=== PATIENT | male | born 1955 | race Caucasian/White ===

== ENCOUNTER 2018-02-03 12:38 | Observation (INO) ==
--- NOTE | 2018-02-03 12:56 | Emergency Department Note ---
Disposition Clinical Impression: Syncope, Bradycardia Disposition: Admitted As Inpatient Condition: Good Referrals: NONE,PCP [Primary Care Provider] - Forms: ED Satisfaction Letter Time of Disposition: 15:27 Syncope HPI - General Chief Complaint: ED Syncope Stated Complaint: near syncope Time Seen by Provider: 02/03/18 12:45 Source: patient, EMS Limitations: no limitations Nursing Notes Reviewed: Yes Vital Signs Reviewed: Yes - History of Present Illness HPI Narrative: Patient went from being in the pool for 30 minutes to the hot tub sun and became lightheaded dizzy felt he was given a passout patient states this happened to him in the past. He denies fever chills lightheadedness dizziness at this present time states all symptoms have resolved. He denies chest pain chest pressure palpitations cough cold of flulike symptoms. Denies any diarrhea melena hematochezia hematemesis numbness tingling weakness recent weight gain or weight loss. 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 LOC) Prodromal Symptoms: headache Context: during exertion Injuries Sustained Associated with Event: face, chest Current Symptoms: back to baseline, chest pain History: other - Related Data Home Medications Medication Instructions Recorded Confirmed Fludrocortisone Acetate [Florinef] 0.1 mg PO DAILY PRN 06/04/16 02/03/18 Gabapentin [Neurontin] 100 mg PO TID 12/05/17 02/03/18 Omeprazole Magnesium [Prilosec Otc] 20 mg PO DAILY 12/05/17 02/03/18 Sodium Chloride [Sodium Chloride 1 gm PO DAILY 12/05/17 02/03/18 Tab] Allergies Allergy/AdvReac Type Severity Reaction Status Date / Time No Known Allergies Allergy Verified 12/05/17 10:19 All systems ED: reviewed and negative except as stated. Review of Systems: As Per HPI Constitutional: Reports: weakness. Denies: fever, chills Eyes: Denies: eye pain, eye discharge ENT ED: Denies: ear pain, throat pain Cardiovascular: Denies: chest pain, palpitations Respiratory: Denies: cough, dyspnea, wheezes Gastrointestinal: Denies: abdominal pain, nausea, vomiting Genitourinary: Denies: urgency, dysuria Musculoskeletal: Denies: back pain Integumentary: Denies: rash, abrasion Neurological: Denies: headache Psychiatric: Denies: anxiety Endocrine: Reports: fatigue Hematological/Lymphatic: Denies: easy bleeding Allergic/Immunologic: Denies: facial swelling Past Medical History - Past Medical History Attestation: Yes The following information was validated with the patient. Source: patient, old records reviewed, obtained from family, nursing notes reviewed Medical history: Reports: CVA, GERD, other Surgical history: Reports: appendectomy, other Psychiatric history: Reports: no psych history - Social History Smoking Status: Never smoker Smokeless Tobacco Status: No Alcohol use: Reports: none Drug use: Reports: none Physical Exam - General Limitations: no limitations, age General appearance: alert, in no apparent distress - Head Head exam: normocephalic, normal inspection, other - Eye Eye exam: Present: normal appearance, PERRL, EOMI - ENT ENT exam: normal exam, normal oropharynx, mucous membranes moist, TM's normal bilaterally, normal external ear exam - Neck Neck exam: Present: normal inspection, full ROM, trachea midline - Chest Chest inspection: Present: normal inspection, symmetric chest wall rise - Respiratory Respiratory exam: Present: normal lung sounds bilaterally - Cardiovascular Cardiovascular exam: Present: regular rate, normal rhythm, normal heart sounds - Abdominal Exam Abdominal exam: Present: soft, Non-Tender, normal bowel sounds. Absent: mass, pulsatile mass - Expanded Upper Extremity Exam Shoulder exam: Present: normal inspection, full ROM Arm exam: Present: normal inspection, full ROM Elbow exam: Present: normal inspection, full ROM Forearm/Wrist exam: Present: normal inspection, full ROM Hand exam: Present: normal inspection, full ROM Vascular exam: Normal: capillary refill, radial pulse - Expanded Lower Extremity Exam Hip/Pelvis exam: Present: normal inspection, full ROM Upper leg exam: Present: normal inspection, full ROM Knee exam: Present: normal inspection, full ROM Lower leg exam: Present: normal inspection, full ROM Ankle exam: Present: normal inspection, full ROM Foot/toe exam: Present: normal inspection, full ROM Neurovascular/Tendon exam: Present: normal capillary refill, normal fine/light touch. Absent: motor deficit, sensory deficit, tendon deficit Gait: observed and normal - Back Exam Back exam: Present: normal inspection, full ROM, muscle spasm - Neurological Exam Neurological exam: Present: alert, oriented X3, CN II-XII intact, normal gait - Psychiatric Psychiatric exam: Present: normal affect, normal mood - Skin Skin exam: Present: warm, dry, intact, normal color Course Course Narrative: Patient seen and examined patient had a CT the chest CT of the head to rule out possible fractures or pneumothorax patient is resting comfortably at this time Vital Signs Temperature 97.1 F L 02/03/18 12:41 Pulse Rate 74 02/03/18 12:41 Respiratory Rate 18 02/03/18 12:41 Blood Pressure 112/69 02/03/18 12:41 O2 Sat by Pulse Oximetry 98 02/03/18 12:41 Temperature 97.1 F L 02/03/18 12:41 Pulse Rate 74 02/03/18 15:00 Respiratory Rate 18 02/03/18 15:00 Blood Pressure 147/79 02/03/18 15:00 O2 Sat by Pulse Oximetry 100 02/03/18 15:00 Oxygen Delivery Oxygen Delivery Room Air Syncope - Medical Records Medical records reviewed: Yes I reviewed the patient's medical records. - Lab Data Lab results reviewed: Yes I reviewed the patient's lab results. Result diagrams: 02/03/18 13:05 02/03/18 13:05 Lab Results 02/03/18 02/03/18 02/03/18 Range/Units 13:05 13:05 13:05 WBC 7.0 (4.3-11.1) K/mcL RBC 4.62 (4.19-5.50) M/mcL Hgb 13.7 (12.9-16.9) g/dL Hct 39.9 (37.5-50.1) % MCV 86.4 (83.0-100.0) fL MCH 29.7 (28.0-33.3) pg MCHC 34.3 (31.6-35.5) g/dL RDW 12.9 (11.5-14.5) % Plt Count 99 L (140-400) K/mcL MPV 11.1 (9.4-12.4) fL Seg Neutrophils % 42.0 % Lymphocytes % 28.0 % Monocytes % 18.0 % Eosinophils % 6.0 % Basophils % 6.0 % Neutrophils # 2.9 (1.6-8.9) K/mcL Lymphocytes # 2.0 (0.6-4.6) K/mcL Monocytes # 1.3 (0.0-1.3) K/mcL Eosinophils # 0.4 (0.0-0.6) K/mcL Basophils # 0.4 H (0.0-0.2) K/mcL Platelet Estimate Normal (Normal) Large Platelets Present A (Not Present) Anisocytosis 1+ A (Not Present) PT 12.3 H (9.4-12.1) Seconds INR 1.1 APTT 31.7 (26.0-36.0) Seconds Sodium 141 (136-145) mEq/L Potassium 3.4 L (3.5-5.1) mEq/L Chloride 107 (98-107) mEq/L Carbon Dioxide 27 (23-29) mEq/L BUN 11 (8-23) mg/dL Creatinine 0.98 (0.70-1.30) mg/dL Est GFR ( Amer) > 60 (> 60) Est GFR (Non-Af Amer) > 60 (> 60) BUN/Creatinine Ratio 11 (6-26) Glucose 88 (70-105) mg/dL Calculated Osmolality 291 (280-300) Calcium 8.8 (8.6-10.3) mg/dL Troponin I < 0.03 (< 0.04) ng/mL TSH 1.179 (0.340-5.600) mcIU/mL - Radiology Data Radiology results reviewed: Yes I reviewed the patient's radiology results. ITS Impressions Chest X-Ray 02/03/18 12:54 IMPRESSION: No acute process. D/ / Cyrus Cole MD / Cyrus Cole MD Interpreting Provider: Cyrus Cole MD Head CT 02/03/18 12:54 IMPRESSION: No acute intracranial abnormality. D/ / Cyrus Cole MD / Cyrus Cole MD Interpreting Provider: Cyrus Cole MD - EKG Data EKG attestation: Yes I reviewed and interpreted this EKG. EKG results narrative: Sinus rhythm nonspecific T-wave rate 71 MS 172 QRS 85 QT 380 and axis XXXVI Critical Care Time Critical Care Time: No
[2018-02-03 13:32] LABS: INR 1.1; Prothrombin Time 12.3 Seconds (9.4-12.1)
[2018-02-03 13:35] LABS: Activated Partial Thrombo Time 31.7 Seconds (26.0-36.0); Hematocrit 39.9 % (37.5-50.1); Hemoglobin 13.7 g/dL (12.9-16.9); Mean Corpuscular HGB Conc 34.3 g/dL (31.6-35.5); Mean Corpuscular Hemoglobin 29.7 pg (28.0-33.3); Mean Corpuscular Volume 86.4 fL (83.0-100.0); Mean Platelet Volume 11.1 fL (9.4-12.4); Platelet Count 99 K/mcL (140-400); Red Blood Count 4.62 M/mcL (4.19-5.50); Red Cell Distribution Width 12.9 % (11.5-14.5)
[2018-02-03 13:43] LABS: BUN/Creatinine Ratio 11 (6-26); Blood Urea Nitrogen 11 mg/dL (8-23); Calcium 8.8 mg/dL (8.6-10.3); Carbon Dioxide 27 mEq/L (23-29); Chloride 107 mEq/L (98-107); Glucose 88 mg/dL (70-105); Osmolality,Calculated 291 (280-300); Potassium 3.4 mEq/L (3.5-5.1); Sodium 141 mEq/L (136-145); eGFR For Non-African Americans > 60 (> 60)
[2018-02-03 13:44] LABS: Troponin I < 0.03 ng/mL (< 0.04)
--- NOTE | 2018-02-03 13:48 | Electrocardiograph Report ---
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
[2018-02-03 13:57] LABS: Thyroid Stimulating Hormone 1.179 mcIU/mL (0.340-5.600)
[2018-02-03 14:13] LABS: Anisocytosis 1+ (Not Present); Basophils # 0.4 K/mcL (0.0-0.2); Eosinophils # 0.4 K/mcL (0.0-0.6); Large Platelets Present (Not Present); Monocytes # 1.3 K/mcL (0.0-1.3); Neutrophils # 2.9 K/mcL (1.6-8.9); Platelet Estimate Normal (Normal)
[2018-02-03] MEDS ORDERED: Naloxone 0.4 MG/ML INJ IVP PRN ×2 (16:17)
--- NOTE | 2018-02-03 17:44 | Internal Med History&Physical ---
Date of Encounter: 02/03/18 Time of Encounter: 17:00 Assessment and Plan (1) Near syncope Current visit: Yes Status: Acute Possibly due to hypotension from vasodilation. Orthostatic vital signs will be checked in a.m. Telemetry monitoring will be done. Review of rhythm strips from the emergency room does not show heart rate decreasing into the 30s. There appears to be incorrect analysis of data by machine. (2) Hypokalemia Current visit: Yes Status: Acute Intermittently present since October 2015. Suspect due in part to Florinef use. Supplemental potassium will be given and labs rechecked in a.m. (3) Thrombocytopenia Current visit: Yes Status: Acute Platelet count was 329K on 01/24/2018. No previous thrombocytopenia documented on labs back to November 2013. Recheck in a.m. (4) Orthostatic hypotension Current visit: Yes Status: Acute Continue Florinef and sodium chloride tablets. Check orthostatic vital signs in a.m. Internal Medicine - H&P: HPI Chief complaint: Near syncope Admitted From: Emergency Dept Plans for Post Hospital Care: Home History of present illness: Mr. Fernandez is a 62 year old male who came to emergency room after having a near syncopal episode. He reports he was swimming in the pool at [facility] and got out of the pool to sit in the hot tub. He became lightheaded and dizzy but denies complete syncope. He was brought to emergency room and evaluated. Blood pressure was satisfactory but heart rate was reported to drop to the 30s in emergency room. He was admitted to [facility] for observation and ongoing care needs. He states he feels back to his baseline now. He states he had a similar but much less severe episode of lightheadedness on January 31 when he got in the hot tub following swimming. He reports a true syncopal episode 08/27/2015 at home with a fall resulting in neck fracture. He had cervical fusion surgery at a [facility]. He reports the next syncopal episode was July 2016 with a fall resulting in right clavicle fracture. Patient states a Holter monitor at that time showed a 2 second pause. His financial professional then ordered an event monitor which did not show significant findings and no pacemaker was placed. He reports another syncopal episode in the fall of 2016 without further workup done. His cardiovascular history is significant otherwise for orthostatic hypotension diagnosed July 2016 with tilt table test producing syncope. He was placed on Florinef and sodium chloride tablets for treatment. He denies diagnosis of heart failure [place] DVT or pulmonary embolus. Past Med Surg Social Fam HX - Past Medical History Medical history: CVA, GERD, other Additional medical history: neck fracture Psychiatric history: no psych history - Past Surgical History Surgical History: appendectomy, other Additional surgical history: BOWEL OBSTRUCTION, SURGICAL REPAIR, neck sx - Social History Smoking Status: Never smoker Smokeless Tobacco Status: No Alcohol use: none Drug use: none Internal Medicine - H&P: Meds Fludrocortisone Acetate [Florinef] 0.1 mg PO DAILY PRN 06/04/16 [History] Gabapentin [Neurontin] 100 mg PO TID 12/05/17 [History] Omeprazole Magnesium [Prilosec Otc] 20 mg PO DAILY 12/05/17 [History] Sodium Chloride [Sodium Chloride Tab] 1 gm PO DAILY 12/05/17 [History] Allergy/AdvReac Type Severity Reaction Status Date / Time No Known Allergies Allergy Verified 12/05/17 10:19 All Systems PM: A 10-system review of systems was performed and is negative for pertinent findings except as documented above in the HPI. Review of systems: Gen.: He states his weight has fluctuated significantly in the past 2 years but has been stable for the last 2 months. Cardiovascular: As per history of present illness Respiratory: He is a lifelong nonsmoker and denies chronic lung disease GI: He has had appendectomy and reports surgery for intestinal obstruction many years ago. There is been no recurrence of the obstruction and he does not know the etiology. He has occasional GERD symptoms. He denies disorders of his liver gallbladder or exocrine pancreas. : He denies hematuria dysuria or kidney stones Neurologic: He reports seizures in childhood with his last seizure in the 1970s. He states the neurosurgeon told him after the July 2015 fall and neck fracture that a stroke might have occurred although no imaging evidence was found. Patient reports very minimal residual weakness in his left arm and leg. Endocrine: He denies diabetes thyroid disease or hyperlipidemia Hematology/oncology: He denies blood disorders cancers or anemia Psychiatric: He denies anxiety depression or other mental health issues [place] skeletal: He states he has a nerve compression around his right lateral knee area. He denies other bone joint or muscle disorders. He has had cervical spine surgery as per history of present illness. - Constitutional Vitals: Temp Pulse Resp BP Pulse Ox 97.1 F L 74 18 147/79 100 02/03/18 12:41 02/03/18 15:00 02/03/18 15:00 02/03/18 15:00 02/03/18 15:00 Exam: Gen.: He is a well-developed well-nourished male resting comfortably in bed who appears in no acute distress at present time HEENT: Head is atraumatic and normocephalic. Eyes: EOMI. There is no scleral icterus. Mouth: Mucosa is moist. Neck: Supple and nontender. There is no thyromegaly or adenopathy noted. Heart: Regular without murmurs gallops or ectopics Lungs: No wheezes or crackles are heard. Abdomen: Soft and nontender. No masses or guarding are noted. Extremities: There is no cyanosis edema or clubbing noted. Dorsalis pedis and posttibial pulses are 1-2 over 2 bilaterally. Neurologic: Mental status: He is talkative and a good historian. Cranial nerves: Smile is symmetric. Forehead wrinkles bilaterally. Tongue protrudes midline. EOMI. Motor: There is no pronator drift. Cerebellar: Finger to nose is intact bilaterally. Skin: Warm and dry. He has well-healed posterior cervical surgical scar. Internal Med - H&P Results - Labs CBC & Chem 7: 02/03/18 13:05 02/03/18 13:05 Labs: Short CBC 02/03/18 Range/Units 13:05 WBC 7.0 (4.3-11.1) K/mcL Hgb 13.7 (12.9-16.9) g/dL Hct 39.9 (37.5-50.1) % Plt Count 99 L (140-400) K/mcL Neutrophils # 2.9 (1.6-8.9) K/mcL BMP 02/03/18 13:05 Sodium 141 Potassium 3.4 L Chloride 107 Carbon Dioxide 27 BUN 11 Creatinine 0.98 Glucose 88 Calcium 8.8 Cardiac Enzymes 02/03/18 Range/Units 13:05 Troponin I < 0.03 (< 0.04) ng/mL - Impressions ITS Impressions Chest X-Ray 02/03/18 12:54 IMPRESSION: No acute process. D/ / Cyrus Cole MD / Cyrus Cole MD Interpreting Provider: Cyrus Cole MD Head CT 02/03/18 12:54 IMPRESSION: No acute intracranial abnormality. D/ / Cyrus Cole MD / Cyrus Cole MD Interpreting Provider: Cyrus Cole MD
[2018-02-03] MEDS: Gabapentin 100 MG CAPSULE PO SCH ×2 (18:13→23:10)
[2018-02-03 21:17] LABS: Bilirubin,Urine Negative (Negative); Blood,Urine Negative (Negative); Clarity,Urine Cloudy (Clear); Color,Urine Yellow (Yellow); Glucose,Urine (UA) Normal (Normal); Ketones,Urine Negative (Negative); Leukocyte Esterase,Urine Negative (Negative); Nitrite,Urine Negative (Negative); PH,Urine 7.5 pH Units (5.0-8.0); Protein,Urine Negative (Neg-Trace)
[2018-02-03 21:22] LABS: Amorphous Sediment,Urine Many (Few); Hyaline Casts,Urine Few per lpf (None-Few); Mucus,Urine Few (Few); Squamous Epithelial Cell,Urine Few per lpf (None-Few)
[2018-02-03 21:23] LABS: Bacteria,Urine Many per hpf (None-Few); RBC,Urine 0-3 per hpf (0-3); WBC,Urine 0-3 per hpf (0-3)
[2018-02-04 07:46] LABS: Basophils # 0.1 K/mcL (0.0-0.2); Basophils % 0.6 %; Eosinophils # 0.1 K/mcL (0.0-0.6); Eosinophils % 0.9 %; Hematocrit 41.3 % (37.5-50.1); Hemoglobin 14.3 g/dL (12.9-16.9); Immature Granulocytes % 0.3 % (0-4); Lymphocytes # 1.7 K/mcL (0.6-4.6); Lymphocytes % 20.8 %; Mean Corpuscular HGB Conc 34.6 g/dL (31.6-35.5); Mean Corpuscular Hemoglobin 29.9 pg (28.0-33.3); Mean Corpuscular Volume 86.2 fL (83.0-100.0); Mean Platelet Volume 10.7 fL (9.4-12.4); Monocytes # 1.2 K/mcL (0.0-1.3); Monocytes % 15.2 %; Neutrophils # 4.9 K/mcL (1.6-8.9); Platelet Count 108 K/mcL (140-400); Red Blood Count 4.79 M/mcL (4.19-5.50); Red Cell Distribution Width 12.9 % (11.5-14.5); Segmented Neutrophils % 62.2 %
[2018-02-04 08:01] LABS: BUN/Creatinine Ratio 12 (6-26); Blood Urea Nitrogen 10 mg/dL (8-23); Calcium 9.6 mg/dL (8.6-10.3); Carbon Dioxide 26 mEq/L (23-29); Chloride 107 mEq/L (98-107); Glucose 103 mg/dL (70-105); Osmolality,Calculated 287 (280-300); Potassium 3.8 mEq/L (3.5-5.1); Sodium 139 mEq/L (136-145); eGFR For Non-African Americans > 60 (> 60)
[2018-02-04] MEDS: Gabapentin 100 MG CAPSULE PO SCH (08:44)
--- NOTE | 2018-02-04 11:09 | Discharge Summary ---
Date of Encounter: 02/04/18 Time of Encounter: 11:00 - Discharge Diagnosis (1) Near syncope Priority: Primary Status: Acute (2) Hypokalemia Priority: Secondary Status: Resolved (3) Thrombocytopenia Priority: Secondary Status: Acute (4) Orthostatic hypotension Priority: Secondary Status: Chronic Hospital course: Mr. Fernandez is a 62 year old male who came to emergency room after having a near syncopal episode. He reports he was swimming in the pool at [facility] and got out of the pool to sit in the hot tub. He became lightheaded and dizzy but denies complete syncope. He was brought to emergency room and evaluated. Blood pressure was satisfactory but heart rate was reported to drop to the 30s in emergency room. He was admitted to [facility] for observation and ongoing care needs. Initial orders were written by the emergency room physician. I saw him on February 03 and performed the history and physical. I reviewed the ER telemetry strips from emergency room. The quality of the paper printout of the ER telemetry was fair. It did not appear to me his heart rate dropped below 60. He had no further near syncopal or syncopal episodes after admission. He was able to ambulate to the bathroom without symptoms. Orthostatic vital signs done the morning of discharge showed no significant change in blood pressure from lying to standing. Supplemental potassium was ordered and potassium level normalized by the following day at 3.8. He will remain on potassium supplement at discharge. Platelet count damien to 108K on February 04. His PCP can continue to monitor. The etiology of the thrombocytopenia is not obvious. On February 04 he felt improved and stable for discharge home. He will follow with his PCP Dr. Malik Lynch within 1 week. He will also follow with his real estate office manager Dr. Ernie Gentile. - Time Spent with Patient Total time spent providing and/or coordinating discharge services: - Discharge Medications Prescriptions: Potassium Chloride 20 meq PO DAILY #30 [email or web address] Home Medications: Fludrocortisone Acetate [Florinef] 0.1 mg PO DAILY PRN 06/04/16 [History] Gabapentin [Neurontin] 100 mg PO TID 12/05/17 [History] Omeprazole Magnesium [Prilosec Otc] 20 mg PO DAILY 12/05/17 [History] Sodium Chloride [Sodium Chloride Tab] 1 gm PO DAILY 12/05/17 [History] Potassium Chloride 20 meq PO DAILY #30 [email or web address] 02/04/18 [Rx] Allergies/Adverse Reactions: Allergy/AdvReac Type Severity Reaction Status Date / Time No Known Allergies Allergy Verified 12/05/17 10:19 Date of admission: 02/03/18 15:25 Primary care physician: Malik Lynch M.D. - Constitutional Vitals: Temp Pulse Resp BP Pulse Ox 98.4 F 73 19 173/95 95 02/04/18 06:00 02/04/18 06:00 02/04/18 06:00 02/04/18 06:00 02/04/18 06:00 - Patient Status Disposition: Home, Self-Care Condition: Good - Discharge Instructions Follow Up With: NONE,PCP [Primary Care Provider] - 1 week - Diet and Activity Activity: resume usual activities as tolerated Diet: advance to your usual diet
[2018-02-04 11:31] VITALS: BP 162/97
== END 2018-02-04 12:33 | disposition home or self-care (01) ==
LOC: EMEROOPIK 12:38 → INPPIK 12:38
PROVIDERS: ADMIT Internal Medicine; ATTEND Internal Medicine

== ENCOUNTER 2019-07-16 21:56 | Inpatient (IN) ==
[2019-07-16] MEDS ORDERED: 0.9 % Sodium Chloride 1,000 ML IVC ONE (22:02)
[2019-07-16 22:29] LABS: Basophils % 0.2 %; Eosinophils % 0.1 %; Hematocrit 43.7 % (37.5-50.1); Hemoglobin 14.9 g/dL (12.9-16.9); Immature Granulocytes % 0.2 % (0-4); Lymphocytes # 1.1 K/mcL (0.6-4.6); Lymphocytes % 8.7 %; Mean Corpuscular HGB Conc 34.1 g/dL (31.6-35.5); Mean Corpuscular Hemoglobin 29.3 pg (28.0-33.3); Monocytes % 7.4 %; Neutrophils # 10.9 K/mcL (1.6-8.9); Platelet Count 317 K/mcL (140-400); Red Blood Count 5.08 M/mcL (4.19-5.50); Red Cell Distribution Width 13.3 % (11.5-14.5); Segmented Neutrophils % 83.4 %; White Blood Count 13.1 K/mcL (4.3-11.1)
[2019-07-16 22:48] LABS: Troponin I < 0.03 ng/mL (< 0.04)
[2019-07-16 22:49] LABS: Alanine Aminotransferase 14 Units/L (7-52); Albumin 4.1 g/dL (3.5-5.7); Albumin/Globulin Ratio 1.3 (1.1-2.2); Alkaline Phosphatase 84 Units/L (34-104); Amylase 29 Units/L (29-103); Aspartate Amino Transferase 17 Units/L (13-39); BUN/Creatinine Ratio 14 (6-26); Bilirubin,Total 1.3 mg/dL (0.3-1.0); Blood Urea Nitrogen 18 mg/dL (8-23); Calcium 9.8 mg/dL (8.6-10.3); Carbon Dioxide 22 mEq/L (23-29); Chloride 100 mEq/L (98-107); Globulin 3.1 g/dL (2.4-3.5); Glucose 142 mg/dL (70-105); Lipase 22 Units/L (11-82); Osmolality,Calculated 286 (280-300); Potassium 3.4 mEq/L (3.5-5.1); Sodium 136 mEq/L (136-145); Total Protein 7.2 g/dL (6.4-8.9); eGFR For African Americans > 60 (> 60); eGFR For Non-African Americans 57 (> 60)
[2019-07-16] MEDS ORDERED: 0.9 % Sodium Chloride 1,000 ML IVC SCH (23:00)
[2019-07-16] MEDS ORDERED: MetroNIDAZOLE 500 MG/100 ML 500 MG/100 ML BAG IVPB ONE (23:29)
[2019-07-17] MEDS ORDERED: Naloxone 0.4 MG/ML INJ IVP PRN (00:06)
[2019-07-17] MEDS ORDERED: MetroNIDAZOLE 500 MG/100 ML 500 MG/100 ML BAG IVPB ONE (00:06)
[2019-07-17] MEDS: 0.9 % Sodium Chloride 1,000 ML IVC SCH ×4 (01:09→11:39)
[2019-07-17] MEDS: MetroNIDAZOLE 500 MG/100 ML 500 MG/100 ML BAG IVPB SCH ×2 (08:19→17:04)
[2019-07-17 08:42] LABS: Mean Corpuscular HGB Conc 34.1 g/dL (31.6-35.5); Mean Corpuscular Hemoglobin 29.7 pg (28.0-33.3); Mean Corpuscular Volume 86.9 fL (83.0-100.0); Mean Platelet Volume 9.9 fL (9.4-12.4); Platelet Count 236 K/mcL (140-400); Red Blood Count 4.72 M/mcL (4.19-5.50); Red Cell Distribution Width 13.6 % (11.5-14.5); White Blood Count 5.1 K/mcL (4.3-11.1)
[2019-07-17 08:58] LABS: Albumin 3.4 g/dL (3.5-5.7); Albumin/Globulin Ratio 1.4 (1.1-2.2); Bilirubin,Total 1.4 mg/dL (0.3-1.0); Calcium 9.3 mg/dL (8.6-10.3); Globulin 2.4 g/dL (2.4-3.5); Potassium 3.2 mEq/L (3.5-5.1); Total Protein 5.8 g/dL (6.4-8.9)
[2019-07-17] MEDS: Gabapentin 300 MG CAPSULE PO SCH ×3 (10:08→20:25)
[2019-07-17 10:27] LABS: Albumin 3.3 g/dL (3.5-5.7); Albumin/Globulin Ratio 1.4 (1.1-2.2); Bilirubin,Direct 0.2 mg/dL (0.0-0.2); Bilirubin,Total 1.2 mg/dL (0.3-1.0); Calcium 9.2 mg/dL (8.6-10.3); Globulin 2.3 g/dL (2.4-3.5); Potassium 3.3 mEq/L (3.5-5.1); Total Protein 5.6 g/dL (6.4-8.9)
[2019-07-17] MEDS ORDERED: 0.9 % Sodium Chloride 1,000 ML IVC SCH (11:45)
[2019-07-17] MEDS: Ondansetron 4 MG/2 ML VIAL IVP PRN (21:04)
[2019-07-18] MEDS: 0.9 % Sodium Chloride 1,000 ML IVC SCH ×3 (00:20→13:17)
[2019-07-18] MEDS: MetroNIDAZOLE 500 MG/100 ML 500 MG/100 ML BAG IVPB SCH ×3 (00:23→15:21)
[2019-07-18] MEDS: *HR* Enoxaparin 40 MG/0.4 ML SYRINGE SQ SCH (06:30)
[2019-07-18 06:37] LABS: Mean Corpuscular HGB Conc 35.1 g/dL (31.6-35.5); Mean Corpuscular Volume 85.3 fL (83.0-100.0); Mean Platelet Volume 10.4 fL (9.4-12.4); Platelet Count 222 K/mcL (140-400); Red Blood Count 4.34 M/mcL (4.19-5.50); Red Cell Distribution Width 13.9 % (11.5-14.5); White Blood Count 17.9 K/mcL (4.3-11.1)
[2019-07-18 06:50] LABS: BUN/Creatinine Ratio 16 (6-26); Blood Urea Nitrogen 19 mg/dL (8-23); Calcium 9.2 mg/dL (8.6-10.3); Carbon Dioxide 21 mEq/L (23-29); Chloride 108 mEq/L (98-107); Glucose 102 mg/dL (70-105); Osmolality,Calculated 288 (280-300); Potassium 3.7 mEq/L (3.5-5.1); Sodium 138 mEq/L (136-145); eGFR For African Americans > 60 (> 60); eGFR For Non-African Americans > 60 (> 60)
[2019-07-18] MEDS: Gabapentin 300 MG CAPSULE PO SCH ×3 (07:57→20:10)
[2019-07-18] MEDS: Cyanocobalamin (B-12) 1,000 MCG TABLET PO SCH (07:57)
[2019-07-18] MEDS ORDERED: levoFLOXacin 500 MG/100 ML 500 MG/100 ML BAG IVPB SCH (08:00)
[2019-07-18] MEDS: Ondansetron 4 MG/2 ML VIAL IVP PRN (08:23)
[2019-07-18] MEDS ORDERED: cefTRIAXone 1,000 MG in 0.9 % Sodium Chloride Mini Bag 100 ML IVPB SCH (09:00)
[2019-07-18] MEDS ORDERED: 0.9 % Sodium Chloride 1,000 ML IVC SCH (10:45)
[2019-07-18] MEDS ORDERED: Azithromycin 500 MG in 0.9 % Sodium Chloride 250 ML IVPB SCH (11:00)
[2019-07-18] MEDS ORDERED: levoFLOXacin 750 MG/150 ML 750 MG/150 ML BAG IVPB SCH (12:00)
[2019-07-18 21:20] LABS: Adenovirus Not Detected (Not Detect); Bordetella Pertussis Not Detected (Not Detect); Chlamydophila pneumoniae Not Detected (Not Detect); Coronavirus 229E Not Detected (Not Detect); Coronavirus HKU1 Not Detected (Not Detect); Coronavirus NL63 Not Detected (Not Detect); Coronavirus OC43 Not Detected (Not Detect); Human Metapneumovirus Not Detected (Not Detect); Human Rhinovirus/Enterovirus Not Detected (Not Detect); Influenza A Subtype 2009 H1 Not Detected (Not Detect); Influenza B Not Detected (Not Detect); Mycoplasma pneumoniae Not Detected (Not Detect); Parainfluenza Virus 1 Not Detected (Not Detect); Parainfluenza Virus 2 Not Detected (Not Detect); Parainfluenza Virus 3 Not Detected (Not Detect); Parainfluenza Virus 4 Not Detected (Not Detect); Respiratory Syncytial Virus Not Detected (Not Detect)
[2019-07-19] MEDS: MetroNIDAZOLE 500 MG/100 ML 500 MG/100 ML BAG IVPB SCH (00:25)
[2019-07-19] MEDS: *HR* Enoxaparin 40 MG/0.4 ML SYRINGE SQ SCH (06:03)
[2019-07-19 06:52] LABS: Hematocrit 35.8 % (37.5-50.1); Hemoglobin 12.5 g/dL (12.9-16.9); Mean Corpuscular HGB Conc 34.9 g/dL (31.6-35.5); Mean Corpuscular Hemoglobin 29.6 pg (28.0-33.3); Mean Corpuscular Volume 84.6 fL (83.0-100.0); Mean Platelet Volume 10.7 fL (9.4-12.4); Platelet Count 234 K/mcL (140-400); Red Blood Count 4.23 M/mcL (4.19-5.50); Red Cell Distribution Width 13.5 % (11.5-14.5); White Blood Count 21.1 K/mcL (4.3-11.1)
[2019-07-19 06:53] VITALS: BP 170/97
[2019-07-19 07:15] LABS: BUN/Creatinine Ratio 15 (6-26); Blood Urea Nitrogen 13 mg/dL (8-23); Calcium 9.4 mg/dL (8.6-10.3); Carbon Dioxide 25 mEq/L (23-29); Chloride 104 mEq/L (98-107); Glucose 98 mg/dL (70-105); Osmolality,Calculated 284 (280-300); Sodium 137 mEq/L (136-145); eGFR For African Americans > 60 (> 60); eGFR For Non-African Americans > 60 (> 60)
[2019-07-19 07:46] LABS: Basophils # 0.1 K/mcL (0.0-0.2); Basophils % 0.3 %; Eosinophils # 0.1 K/mcL (0.0-0.6); Eosinophils % 0.3 %; Hematocrit 36.2 % (37.5-50.1); Hemoglobin 12.5 g/dL (12.9-16.9); Immature Granulocytes % 0.7 % (0-4); Lymphocytes # 0.9 K/mcL (0.6-4.6); Lymphocytes % 4.4 %; Mean Corpuscular HGB Conc 34.5 g/dL (31.6-35.5); Mean Corpuscular Hemoglobin 29.1 pg (28.0-33.3); Mean Corpuscular Volume 84.4 fL (83.0-100.0); Mean Platelet Volume 11.5 fL (9.4-12.4); Monocytes # 1.2 K/mcL (0.0-1.3); Monocytes % 5.7 %; Neutrophils # 18.8 K/mcL (1.6-8.9); Platelet Count 223 K/mcL (140-400); Red Blood Count 4.29 M/mcL (4.19-5.50); Red Cell Distribution Width 13.8 % (11.5-14.5); Segmented Neutrophils % 88.6 %; White Blood Count 21.2 K/mcL (4.3-11.1)
[2019-07-19] MEDS ORDERED: Ondansetron 4 MG/2 ML VIAL IVP PRN (07:46)
[2019-07-19] MEDS ORDERED: levoFLOXacin 750 MG/150 ML 750 MG/150 ML BAG IVPB SCH (09:00)
[2019-07-19] MEDS: Gabapentin 300 MG CAPSULE PO SCH (11:01)
[2019-07-19] MEDS: Cyanocobalamin (B-12) 1,000 MCG TABLET PO SCH (11:01)
== END 2019-07-19 11:31 | disposition short-term general hospital (02) | DRG 871 ==
LOC: INPPIK 21:56 → EMEROOPIK 21:56 → INPPIK 23:59
PROVIDERS: ADMIT Family Medicine; ATTEND Family Medicine